=== PATIENT | male | born 1945 | race Caucasian/White ===

== ENCOUNTER 2016-12-05 12:15 | Emergency (ER) | payer OTHER ==
[~2016-12-05] VITALS: Ht 188 cm; Wt 95.5 kg
[~2016-12-05 12:15] MED LIST: DIAZ10TA3 PO; HCTZ; RES15 PO; ZOLOFT
[2016-12-05 12:18] VITALS: BP 152/86; PULSE 59; RESP 16; O2SAT 96
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
[2016-12-05 14:22] VITALS: BP 130/82; PULSE 62; O2SAT 96
--- NOTE | 2016-12-05 17:04 | DRSVH ---
PROCEDURE: US EXTREMITY SONOGRAM LIMITED ([id number]) INDICATIONS: increased swelling ? abscess TECHNIQUE: Real-time scanning was performed of the posterior neck, with image documentation. COMPARISON: None. FINDINGS: Avascular, rounded complex soft tissue mass is present corresponding to the palpable abnorm ality measuring roughly 14 mm. IMPRESSION: Avascular rounded complex soft tissue mass. Findings likely related to epidermoid inclus ion cyst given the appearance, although the findings are nonspecific and other malignant or benign et iologies cannot be excluded. Recommend dermatology consultation. Maria Luz [facility] given results at 1338 hrs. 12/06/1999 1700 Dictated by: Ji Valverde [facility] Interpreted: Citlaly Louie MD on 12/05/2016 at 15:55 Approved by: Citlaly Louie M.D. on 12/05/2016 at 17:02
== END 2016-12-05 14:26 | disposition home or self-care (01) ==
LOC: SED 12:15
DX: L72.0 Epidermal cyst (principal); F17.200 Nicotine dependence, unspecified, uncomplicated; F41.9 Anxiety disorder, unspecified; F43.10 Post-traumatic stress disorder, unspecified; Z88.5 Allergy status to narcotic agent

== ENCOUNTER 2016-12-17 20:44 | Emergency (ER) | payer OTHER ==
[~2016-12-17] VITALS: Ht 188 cm; Wt 95.5 kg
[2016-12-17 20:51] VITALS: BP 129/75; PULSE 68; RESP 18; O2SAT 96
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
[2016-12-17] MEDS ORDERED: Ondansetron 2 mg/mL 2 mL Inj IVPUSH ONE (23:05)
[2016-12-17 23:18] VITALS: BP 151/93; PULSE 50; RESP 18; O2SAT 97
[2016-12-18] MEDS ORDERED: IBUP-1827 PO (01:21)
[2016-12-18] MEDS ORDERED: TRAM50TA2 PO (01:21)
[2016-12-18 01:34] VITALS: BP 128/82; PULSE 48; RESP 20; O2SAT 98
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
== END 2016-12-18 01:34 | disposition home or self-care (01) ==
LOC: SED 20:44
DX: S06.0X1A Concussion with loss of consciousness of 30 minutes or less, initial encounter (principal); S39.012A Strain of muscle, fascia and tendon of lower back, initial encounter; M54.31 Sciatica, right side; Y04.0XXA Assault by unarmed brawl or fight, initial encounter; Y93.89 Activity, other specified; Y92.511 Restaurant or cafe as the place of occurrence of the external cause; Y99.0 Civilian activity done for income or pay; F17.200 Nicotine dependence, unspecified, uncomplicated; Z88.5 Allergy status to narcotic agent
CPT/HCPCS: 70450; 71010; 72125; 72131; 73030; 96372; 96374; 99285; J1885; J2405

== ENCOUNTER 2016-12-21 09:34 | Emergency (ER) | payer OTHER ==
[~2016-12-21] VITALS: Ht 188 cm; Wt 95.5 kg
[~2016-12-21 09:34] MED LIST changes: +IBUP-1827 PO; +TRAM50TA2 PO
[2016-12-21 09:36] VITALS: BP 119/79; PULSE 70; RESP 16; O2SAT 96
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
[2016-12-21] MEDS ORDERED: TRAM50TA2 PO (09:59)
== END 2016-12-21 10:12 | disposition home or self-care (01) ==
LOC: SED 09:34
DX: M54.9 Dorsalgia, unspecified (principal); Y08.89XA Assault by other specified means, initial encounter; Y93.89 Activity, other specified; Y92.89 Other specified places as the place of occurrence of the external cause; Y99.8 Other external cause status; M79.672 Pain in left foot; R51 Headache; R11.0 Nausea; F17.200 Nicotine dependence, unspecified, uncomplicated; Z98.890 Other specified postprocedural states; Z88.5 Allergy status to narcotic agent; Z88.8 Allergy status to other drugs, medicaments and biological substances